=== PATIENT | male | born 1960 | race African-American/Black ===

== ENCOUNTER 2018-03-16 15:48 | Emergency (ER) | payer OTHER ==
[~2018-03-16] VITALS: Ht 170.2 cm; Wt 95.3 kg
[2018-03-16 16:08] VITALS: BP 146/70
--- NOTE | 2018-03-16 16:12 | PHYS DOC ---
Adult General Chief Complaint Chief Complaint: KNEE INJURY HPI HPI Patient is a 57 year old male who presents with left knee pain without injury. He states it is the anterolateral aspect and one spot is a sharp pain. He states the knee is stiff when he awakens in the morning but states that the pain does not get any better throughout the day. His been going on for 4 days. Patient states this happened once before but he was not seen for it and didn't get better. The knee has 1-2+ swelling compared to the right knee. Patient denies any arthritis or gout history. Patient states he took an aspirin last night for pain. Patient did drive himself here today. Review of Systems Review of Systems Constitutional: Denies fever or chills [] Eyes: Denies change in visual acuity, redness, or eye pain [] HENT: Denies nasal congestion or sore throat [] Respiratory: Denies cough or shortness of breath [] Cardiovascular: No additional information not addressed in HPI [] GI: Denies abdominal pain, nausea, vomiting, bloody stools or diarrhea [] : Denies dysuria or hematuria [] Musculoskeletal: Denies back pain. Left knee joint pain [] Integument: Denies rash or skin lesions [] Neurologic: Denies headache, focal weakness or sensory changes [] All other systems were reviewed and found to be within normal limits, except as documented in this note. Current Medications Current Medications Current Medications Medications (Trade) Dose Ordered Sig/[facility] Start Time Stop Time Status Last Admin Dose Admin Ibuprofen (Motrin) 600 mg 1X ONCE 03/16/18 16:15 03/16/18 16:16 DC 03/16/18 16:16 600 MG Allergies Allergies Allergies Coded Allergies Type Severity Reaction Last Updated Verified No Known Drug Allergies 03/16/18 No Physical Exam Physical Exam Constitutional: Well developed, well nourished, no acute distress, non-toxic appearance. [] HENT: Normocephalic, atraumatic, bilateral external ears normal, oropharynx moist, no oral exudates, nose normal. [] Eyes: PERRLA, EOMI, conjunctiva normal, no discharge. [] Neck: Normal range of motion, no tenderness, supple, no stridor. [] Cardiovascular:Heart rate regular rhythm, no murmur [] Lungs & Thorax: Bilateral breath sounds clear to auscultation [] Abdomen: Bowel sounds normal, soft, no tenderness, no masses, no pulsatile masses. [] Skin: Warm, dry, no erythema, no rash. [] Back: No tenderness, no CVA tenderness. [] Extremities: No tenderness, no cyanosis, no clubbing, ROM intact, left knee 1-2 + edema. [] Neurologic: Alert and oriented X 3, normal motor function, normal sensory function, no focal deficits noted. [] Psychologic: Affect normal, judgement normal, mood normal. [] Current Patient Data Vital Signs Vital Signs Date Time Temp Pulse Resp B/P (MAP) Pulse Ox O2 Delivery O2 Flow Rate FiO2 03/16/18 16:08 97.9 59 18 146/70 (95 97 Room Air 97.9 EKG EKG [] Radiology/Procedures Radiology/Procedures Left knee Impressions: [facility] [address] [place] [address] IMAGING REPORT Signed PATIENT: EJ ROCK ACCOUNT: [id number] : 1960 LOCATION: ER AGE: 57 SEX: M EXAM STATUS: REG ER ORD. PHYSICIAN: FREDDIE BENITEZ APRN REASON: left knee pain PROCEDURE: KNEE LEFT 4V 4 view left knee study Clinical indications: Left knee pain and swelling. FINDINGS: No acute fracture or dislocation or osteolytic process is seen. Degenerative chondrocalcinosis of the lateral and medial menisci are seen. No significant joint space narrowing or spurring is seen. A small left knee joint effusion is seen. IMPRESSION: No acute fracture. Electronically signed by: David Veras MD (03/16/2018 4:59 PM) [facility] DICTATED and SIGNED BY: DAVID VERAS MD DATE: 03/16/18 5774 Course & Med Decision Making Course & Med Decision Making Patient is a 57 year old male who presents with left knee pain without injury. He states it is the anterolateral aspect and one spot is a sharp pain. He states the knee is stiff when he awakens in the morning but states that the pain does not get any better throughout the day. His been going on for 4 days. Patient states this happened once before but he was not seen for it and didn't get better. The knee has 1-2+ swelling compared to the right knee. Patient denies any arthritis or gout history. Patient states he took an aspirin last night for pain. Patient did drive himself here today. Alert and oriented. Laboratory walking into the ED. There is no tenderness with palpation. Patient can extend and bend the knee. When patient bends his knee and is more painful. There is no swelling to the rest the leg and no calf tenderness and no pedal swelling. Patient denies chest pain or shortness of air or numbness and tingling. Vital signs within normal limits. Patient rates his pain a 9 out of 10. I have given patient a ibuprofen in the ED. No acute fracture seen on xray. Dragon Disclaimer Dragon Disclaimer This electronic medical record was generated, in whole or in part, using a voice recognition dictation system. Departure Departure Impression: Primary Impression: Knee effusion, left Disposition: 01 HOME, SELF-CARE Condition: STABLE Referrals: NON,STAFF (PCP) Patient Instructions: Knee Effusion Additional Instructions: FOLLOW UP WITH YOUR PRIMARY CARE PROVIDER THIS WEEK. TAKE IBUPROFEN OR TYLENOL FOR PAIN. FREDDIE BENITEZ ASSISTED SALES REPRESENTATIVE Mar 16, 2018 16:12
[2018-03-16] MEDS ORDERED: IBUPROFEN 600 MG TABLET. PO ONE (16:15)
--- NOTE | 2018-03-16 17:04 | RAD ---
4 view left knee study Clinical indications: Left knee pain and swelling. FINDINGS: No acute fracture or dislocation or osteolytic process is seen. Degenerative chondrocalcinosis of the lateral and medial menisci are seen. No significant joint space narrowing or spurring is seen. A small left knee joint effusion is seen. IMPRESSION: No acute fracture. Electronically signed by: Rene Klein MD (03/16/2018 4:59 PM) [facility]
== END 2018-03-16 17:15 | disposition home or self-care (01) ==
LOC: ER 15:48
DX: M25.462 Effusion, left knee (principal)
CPT/HCPCS: 73564; 99283